=== PATIENT | male | born 1925 | race Caucasian/White ===

== ENCOUNTER 2016-08-28 22:07 | Inpatient (IN) | payer OTHER ==
[~2016-08-28] VITALS: Ht 180.3 cm; Wt 89.9 kg
--- NOTE | ~2016-08-28 | 2DMMODE ---
[facility] [address] [place] [address] 2 D/M-MODE ECHOCARDIOGRAM Name: RICHARD FRAUSTO SAM Room #: 214-P [facility] IN M.R.#: [id number] Admission: 08/28/16 Attend Phys: Alejandro Mcgregor, Discharge: Date of : [birth year] Date of Service: 08/30/16 1003 Report #: [id number] THIS REPORT FOR: //name// APPROVED REPORT Study performed: 08/30/2016 07:54:11 EXAM: Comprehensive 2D, Doppler, and color-flow Echocardiogram Patient Location: Echo lab Room #: 214 Status: routine Other Information Study Quality: Adequate Indications COPD Atrial Fibrillation Echo Enhancing Agent Indication: Endocardial border delineation Agent(s) / Amount(s) Used: Definity 2 cc 2D Dimensions LVEF(%): 56.50 (>50%) IVSd: 10.01 (7-11mm) LVOT Diam: 21.50 (18-24mm) LVDd: 49.78 mm PWd: 9.52 (7-11mm) Ascending Ao: 39.78 (22-36mm) LVDs: 35.01 (25-40mm) Aortic Root: 35.99 mm IVC: 17.00 mm Younger's LVEF: 56.50 % Volumes Left Atrial Volume (Systole) Single Plane 4CH: 38.98 mL Single Plane 2CH: 35.63 mL LA ESV Index: 19.00 mL/m2 Aortic Valve AoV Peak Abdirizak.: 1.18 m/s AO Peak Gr.: 5.58 mmHg LVOT Max P.44 mmHg LVOT Max V: 0.93 m/s TIFFANY Vmax: 2.85 cm2 Mitral Valve E/A Ratio: 0.[address] [facility] [place] [address] 2 D/M-MODE ECHOCARDIOGRAM Name: RICHARD FRAUSTO Room #: 214-P [facility] IN ..#: [id number] Admission: 08/28/16 Attend Phys: Alejandro Mcgregor, Discharge: Date of : [birth year] Date of Service: 08/30/16 1003 Report #: [id number] MV Decel. Time: 367.17 ms MV E Max Abdirizak.: 0.41 m/s MV A Abdirizak.: 0.87 m/s MV PHT: 106.48 ms IVRT: 189.16 ms Pulmonary Valve PV Peak Abdirizak.: 0.73 m/s PV Peak Gr.: 2.13 mmHg Pulmonary Vein P Vein S: 0.50 m/s P Vein A: 0.32 m/s P Vein D: 0.25 m/s P Vein A Dur.: 106.1 msec P Vein S/D Ratio: 2.00 Tricuspid Valve TR Peak Abdirizak.: 2.47 m/s RAP Estimate: 5.00 mmHg TR Peak Gr.: 24.38 mmHg PA Pressure: 29.00 mmHg Left Ventricle The left ventricle is normal size. There is normal LV segmental wall motion. There is normal left ventricular wall thickness. The left ventricular systolic function is normal. The left ventricular ejection fraction is within the normal range. LVEF is 55-60%. Grade I - abnormal relaxation pattern. Right Ventricle The right ventricle is normal size. The right ventricular systolic function is normal. Atria The left atrium size is normal. Right atrium is at the upper limits of normal. Aortic Valve Aortic valve is calcified. Trace aortic regurgitation. There is no aortic valvular stenosis. Mitral Valve The mitral valve is normal in structure. Mild mitral regurgitation. No evidence of mitral valve stenosis. Tricuspid Valve The tricuspid valve is normal in structure. There is trace tricuspid regurgitation. estimated pa presssure 25 mm Hg [facility] [address] [place] [address] 2 D/M-MODE ECHOCARDIOGRAM Name: RICHARD FRAUSTO Room #: 214-P [facility] IN [facility]#: [id number] Admission: 08/28/16 Attend Phys: Alejandro Mcgregor, Discharge: Date of : [birth year] Date of Service: 08/30/16 1003 Report #: [id number] Pulmonic Valve Pulmonic valve is not well visualized. Trace pulmonic regurgitation. Great Vessels Aortic root is mildly dilated. IVC is normal in size and collapses >50% with inspiration. Pericardium There is no pericardial effusion. <Conclusion> The left ventricular systolic function is normal. The left ventricular ejection fraction is within the normal range. Aortic valve is calcified. Mild mitral regurgitation. <ELECTRONICALLY SIGNED> By: Kelechi Elliott MD, [facility] 08/30/16 1003 1003 1003 Kelechi Elliott MD, FACC /INF
--- NOTE | ~2016-08-28 | HC ---
[facility] [place] [address] CONSULTATION Name: RICHARD FRAUSTO Room #: 214-P ADM IN M.R.#: [id number] Admission: 08/28/16 Attend Phys: Alejandro Mcgregor DO Discharge: Date of : [birth year] Report #: [id number] THIS REPORT FOR: //name// CC: Felipa Andersen DATE OF SERVICE: 08/29/2016 PRIMARY CARE PHYSICIAN: Dr. Felipa Guadarrama, [place], [place]. HISTORY OF PRESENT ILLNESS: The patient is an 89-year-old white male who I was asked to see in the hospital today after he was noted to be in atrial fibrillation. The patient has been followed by my partner, Dr. Iron Roper. He actually had a cardiac catheterization back in 2002 here at [facility]. This showed only 30% stenosis of the coronary artery. It was recommended he be treated medically. He has a history of colon cancer and anemia. He has required transfusion in the past. The patient was actually seen by my partner, Dr. Roper in 2011 after he had a near syncopal spell. He apparently did have a history of paroxysmal atrial fibrillation. At that time, he was noted to have a sinus bradycardia. He was on Cardizem CD at that time. He was last admitted here to [facility] in 2014 with exacerbation of chronic bronchitis. The patient is not very active because of his age. He notes for the past several days, he has felt lightheaded. He felt very weak and dizzy. Denied any vomiting, diarrhea or bleeding. He denies recent chest pain, shortness of breath, palpitations, edema. Because of the lightheadedness, he finally called paramedics yesterday. He was found to be in atrial fibrillation with rapid ventricular response rate. He was placed on IV diltiazem and admitted. I was asked to see him for further evaluation and treatment. He denies history of heart murmur. 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 He has had cataract extraction. He has a history of colon cancer. He has gone to the pain clinic in the past for chronic back pain. He has had epidurals in the past. As mentioned, he has a long history of anemia and colon cancer. His last colonoscopy in November 2015. He has had multiple colon polyps removed in the past and has hemorrhoids. His colonoscopy last November showed polyps. His previous upper endoscopy in 2006 that I could find showed only gastritis. CURRENT MEDICATIONS: Consist of albuterol inhaler, Pravachol, aspirin, Cardura CD 240 a day, iron, Symbicort. ALLERGIES: He has intolerance to multiple medications including TRAMADOL, CODEINE, LISINOPRIL, CRESTOR. [address] [address] CONSULTATION Name: RICHARD FRAUSTO Room #: 214-P [facility] IN M.R.#: [id number] Admission: 08/28/16 Attend Phys: Alejandro Mcgregor DO Discharge: Date of : [birth year] Report #: [id number] FAMILY HISTORY: Negative for heart disease. SOCIAL HISTORY: He is . He and his live in [place], [place]. Retired farm truck driver. Quit smoking years ago, rarely drinks alcohol. REVIEW OF SYSTEMS: He has had no history of stroke. He does have COPD. No history of liver disease, kidney disease. He had colon cancer in the past. No psychiatric illness. No chronic skin condition. PHYSICAL EXAMINATION: GENERAL: Revealed an elderly male, lying in bed. He appeared in no distress. VITAL SIGNS: He had a blood pressure of 120/70, pulse is 80. He is afebrile. HEENT: He was anicteric. Conjunctivae are pink. Mucous membranes are moist. NECK: Veins nondistended. CHEST: Clear to auscultation. CARDIAC: Irregular rhythm. ABDOMEN: Soft. EXTREMITIES: Had no edema. Dorsalis pedis pulse 1+ bilaterally. SKIN: Cool and dry. NEUROLOGIC: Nonfocal. RADIOLOGICAL DATA: His ECG on admission last night showed atrial fibrillation with rapid ventricular response rate, left axis, possible previous inferior infarction, age indeterminate. ECG 2014, atrial fibrillation was new. His workup, he had previous echocardiogram in 2012 that showed normal left ventricular function, left atrial enlargement, aortic sclerosis. Previous nuclear stress test in 2012 showed no evidence of ischemia. LABORATORY DATA: Sodium 141, potassium 3.8. His BUN was 14, creatinine 0.8, glucose 100, troponin 0.04, BNP 79. His white blood cell count 9.3, hemoglobin 14. TSH in 2012 was 1.36. IMPRESSION AND RECOMMENDATIONS: 1. Paroxysmal atrial fibrillation. The patient with recurrent episode. I would check thyroid function studies and echocardiogram. The patient has had no recent gastrointestinal bleeding. At this time, I would start Eliquis because of his high CHADS score. If he fails to convert, I would consider RUMA and cardioversion. 2. History of colon cancer. 3. Hypertension. The patient has been on a calcium darshana. [facility] [address] [place] [address] CONSULTATION Name: RICHARD FRAUSTO Room #: 214-P ADM IN M.R.#: [id number] Admission: 08/28/16 Attend Phys: Alejandro Mcgregor DO Discharge: Date of : [birth year] Report #: [id number] 4. Hyperlipidemia. The patient is on a statin drug. 5. History of chronic obstructive pulmonary disease. <ELECTRONICALLY SIGNED> By: Kelechi Elliott MD, FACC 08/29/16 0953 0739 0937 Kelechi Elliott MD, FAC /nt
--- NOTE | ~2016-08-28 | EKG ---
[address] [place] [address] ELECTROCARDIOGRAM REPORT Name: RUSLANANETTERICHARD ROSALES SAM Room #: 214-P ADM IN M.R.#: [id number] Admission: 08/28/16 Attend Phys: Nunu Negron Discharge: Date of : [birth year] Report #: [id number] THIS REPORT FOR: //name// [facility] Test Date: 2016-08-31 Test Time: 06:17:11 Pat Name: RICHARD FRAUSTO Department: Room: 214 P Gender: M Isotope Hydrologist: VANDA : 1925 Requested By: Kelechi Elliott Order Number: [id number] MD: Chris Black Measurements Intervals [place] Rate: 64 P: 66 VT: 164 QRS: -53 QRSD: 111 T: 44 QT: 463 QTc: 478 Interpretive Statements Sinus rhythm Left anterior fascicular block Abnormal R-wave progression, early transition Borderline prolonged QT interval Compared to ECG 08/30/2016 06:44:32 No significant change was found Electronically Signed On 08-31-2016 8:04:36 CDT by Chris Black [email or web address] <ELECTRONICALLY SIGNED> By: Chris Black MD, [facility] 08/31/16 0804 6 6 Chris Black MD, [facility] /EPI
--- NOTE | ~2016-08-28 | EKG ---
[address] [place] [address] ELECTROCARDIOGRAM REPORT Name: RICHARD FRAUSTO Room #: 214-P ADM IN M.R.#: [id number] Admission: 08/28/16 Attend Phys: Alejandro Mcgregor DO Discharge: Date of : [birth year] Report #: [id number] THIS REPORT FOR: //name// [facility] Test Date: 2016-08-28 Test Time: 22:09:21 Pat Name: RICHARD FRAUSTO Department: Room: 214 Gender: M Head Orthopedic Team Physician: ALISHA : 1925 Requested By: Adolfo Orr Order Number: [id number] MD: Chris Black Measurements Intervals [place] Rate: 139 P: [place]: QRS: -53 QRSD: 100 T: 49 QT: 319 QTc: 485 Interpretive Statements Atrial fibrillation with rapid V-rate Abnormal R-wave progression, late transition Inferior infarct, old Compared to ECG 03/15/2014 10:23:28 atrial fibrillation has replaced sinus rhythm Electronically Signed On 08-29-2016 8:52:41 CDT by Chris Black [email or web address] <ELECTRONICALLY SIGNED> By: Chris Black MD, [facility] 08/29/16 0852 2209 08 Chris Black MD, [facility] /EPI
--- NOTE | ~2016-08-28 | EKG ---
[address] [address] ELECTROCARDIOGRAM REPORT Name: RICHARD FRAUSTO Room #: 214-P ADM IN M.R.#: [id number] Admission: 08/28/16 Attend Phys: Alejandro Mcgregor DO Discharge: Date of : [birth year] Report #: [id number] THIS REPORT FOR: //name// [facility] Test Date: 2016-08-30 Test Time: 06:44:32 Pat Name: RICHARD FRAUSTO Department: Room: 214 P Gender: M Net Applications Developer: VANDA : 1925 Requested By: Kelechi Elliott Order Number: [id number] MD: Alexander Dimas Measurements Intervals [place] Rate: 65 P: 54 AR: 172 QRS: -54 QRSD: 112 T: 39 QT: 463 QTc: 482 Interpretive Statements Sinus rhythm Borderline IVCD with LAD Abnormal R-wave progression, early transition Inferior infarct, old Compared to ECG 08/28/2016 22:09:21 Atrial fibrillation no longer present Myocardial infarct finding still present Electronically Signed On 08-30-2016 13:19:39 CDT by Alexander Dimas [email or web address] <ELECTRONICALLY SIGNED> By: Alexander Dimas MD 08/30/16 1319 0644 0644 Alexander Dimas MD /EPI
[~2016-08-28 22:07] MED LIST: ACCUNEB0.63 MG/3; ACETAMINOPHEN325 M1 PO; ADULT LOW DOSE81 MG PO; AFLURIA 2045 MCG/0.4; ALBUTEROL2.5 MG/31 INH; AMOXIL 875 MG875 M1 PO; APAP500 PO; APAP650 PO; CALCIUM; CALCIUM 600 +1 EAC1 PO; CENTRUM SILVER1 EAC4 PO; CRESTOR10 MG PO; DILTIAZEM ER240 MG PO; DILTIAZEM ER300 MG PO; FERRO-TIME325 MG PO; FLOVENT; FLOVENT HFA 2220 MC1 INH; IRON; KEFLEX500 MG PO; MINIPRIN81 MG PO; MIRALAX17 GM PO; MULTIVITAMINS PO; NORCO 5-325 TA1 EACH PO; OMEGA-31000 MG PO; PNEUMOVAX25 MCG/0.5; PRAVACHOL20 MG PO; PREDNISONE 10 M10 MG PO; SIMVASTATIN20 MG PO; SIMVASTATIN40 MG PO; VENTOLIN17 GM INH; ZPAK PO
[2016-08-28 22:08] VITALS: BP 126/90
[2016-08-28 22:19] LABS: HEMATOCRIT 44.5 % (42.0-52.0); HEMOGLOBIN 14.9 gm/dL (14.0-18.0); MCH 33.3 pg (26.0-34.0); MCHC 33.5 g/dL (28.0-37.0); MCV 99.4 fL (80.0-100.0); PLATELET COUNT 453 thou/uL (150-400); RBC 4.48 mil/uL (4.50-6.00); RDW 14.3 % (10.5-14.5); WBC 9.6 thou/uL (4.0-11.0)
[2016-08-28] MEDS ORDERED: SYMBICORT160 MCG/4. (22:21)
[2016-08-28 22:40] LABS: ANION GAP 7 mmol/L (7-16); BUN 13 mg/dL (7-18); CALCIUM 9.2 mg/dL (8.5-10.1); CHLORIDE 108 mmol/L (98-107); CO2 27 mmol/L (21-32); CREATININE 0.9 mg/dL (0.7-1.3); GLUCOSE 129 mg/dL (74-106); MANUAL DIFF YES; SODIUM 142 mmol/L (136-145); TROPONIN-I < 0.04 ng/mL (<0.04-0.07)
[2016-08-28 23:14] LABS: ABSOLUTE NEUTROPHILS 5.1 thou/uL (1.4-8.2); ATYPICAL LYMPHS 2 %; TOTAL CELL COUNT 100
[2016-08-28 23:33] VITALS: BP 103/66
[2016-08-28 23:57] VITALS: BP 131/89
[2016-08-29] VITALS (9 sets, daily range): BP systolic 109–138; BP diastolic 59–89
[2016-08-29 05:29] LABS: HEMATOCRIT 41.3 % (42.0-52.0); MCH 33.4 pg (26.0-34.0); MCV 98.2 fL (80.0-100.0); RBC 4.2 mil/uL (4.50-6.00); WBC 9.3 thou/uL (4.0-11.0)
[2016-08-29 05:39] LABS: CALCIUM 8.6 mg/dL (8.5-10.1); CREATININE 0.8 mg/dL (0.7-1.3); POTASSIUM 3.8 mmol/L (3.5-5.1)
[2016-08-30 03:01] LABS: HEMATOCRIT 43.6 % (42.0-52.0); HEMOGLOBIN 14.4 gm/dL (14.0-18.0); MCH 32.9 pg (26.0-34.0); MCHC 33.2 g/dL (28.0-37.0); MCV 99.1 fL (80.0-100.0); RBC 4.4 mil/uL (4.50-6.00); WBC 8.9 thou/uL (4.0-11.0)
[2016-08-30 03:17] LABS: ALBUMIN 3.2 g/dL (3.4-5.0); CALCIUM 8.6 mg/dL (8.5-10.1); CREATININE 0.8 mg/dL (0.7-1.3); POTASSIUM 3.7 mmol/L (3.5-5.1); TOTAL BILIRUBIN 0.3 mg/dL (<0.1-1.0); TOTAL PROTEIN 6.6 g/dL (6.4-8.2)
[2016-08-30 03:49] VITALS: BP 89/56
[2016-08-30 07:55] VITALS: BP 126/83
[2016-08-30 12:10] VITALS: BP 101/73
[2016-08-30 15:59] VITALS: BP 114/65
[2016-08-30 19:52] VITALS: BP 126/66
[2016-08-31 03:58] VITALS: BP 109/56
[2016-08-31 07:20] VITALS: BP 132/66
[2016-08-31] MEDS ORDERED: ELIQUIS5 MG PO (10:40)
[2016-08-31] MEDS ORDERED: SORINE 80 MG TA80 M1 PO (10:40)
[2016-08-31 11:03] VITALS: BP 109/56
[2016-08-31 12:41] VITALS: BP 109/56
== END 2016-08-31 12:00 | disposition home or self-care (01) | DRG 309 ==
LOC: ER 22:07 → 2N 23:05 → EROBS 23:05 → 2N 23:40
PROVIDERS: Internal Medicine Cardiovascular Disease; Nurse Practitioner Family; Physician Assistant
DX: I48.91 Unspecified atrial fibrillation (principal); E44.1 Mild protein-calorie malnutrition; J44.9 Chronic obstructive pulmonary disease, unspecified; M81.0 Age-related osteoporosis without current pathological fracture; E78.00 Pure hypercholesterolemia, unspecified; I10 Essential (primary) hypertension; I48.0 Paroxysmal atrial fibrillation; G89.29 Other chronic pain; K57.90 Diverticulosis of intestine, part unspecified, without perforation or abscess without bleeding; M54.9 Dorsalgia, unspecified; E78.5 Hyperlipidemia, unspecified; I25.10 Atherosclerotic heart disease of native coronary artery without angina pectoris; Z88.1 Allergy status to other antibiotic agents; Z90.49 Acquired absence of other specified parts of digestive tract; Z85.038 Personal history of other malignant neoplasm of large intestine; Z87.11 Personal history of peptic ulcer disease; Z88.6 Allergy status to analgesic agent; Z88.8 Allergy status to other drugs, medicaments and biological substances; Z90.81 Acquired absence of spleen; Z98.49 Cataract extraction status, unspecified eye; Z68.27 Body mass index [BMI] 27.0-27.9, adult
CPT/HCPCS: 10081

== ENCOUNTER 2016-09-16 06:25 | Observation (INO) | payer OTHER ==
[~2016-09-16] VITALS: Ht 182.9 cm; Wt 91.2 kg
--- NOTE | ~2016-09-16 | EKG ---
[address] [address] ELECTROCARDIOGRAM REPORT Name: RICHARD FRAUSTO Room #: 450-P [facility] M.R.#: [id number] Admission: 09/16/16 Attend Phys: Nunu Negron Discharge: 09/17/16 Date of : [birth year] Report #: [id number] THIS REPORT FOR: //name// [facility] Test Date: 2016-09-17 Test Time: 08:05:51 Pat Name: RICHARD FRAUSTO Department: Room: 450 P Gender: M Rn Telemetry: ARLETTE : 1925 Requested By: Kelechi Elliott Order Number: [id number] MD: Alexander Dimas Measurements Intervals [place] Rate: 70 P: 47 CT: 174 QRS: -47 QRSD: 115 T: 62 QT: 397 QTc: 429 Interpretive Statements Sinus rhythm Left anterior fascicular block Baseline wander in lead(s) II,III,aVF Compared to ECG 08/31/2016 06:17:11 No significant changes Electronically Signed On 09-18-2016 22:14:26 CDT by Alexander Dimas [email or web address] <ELECTRONICALLY SIGNED> By: Alexander Dimas MD 09/18/16 2214 0805 Alexander Dimas MD /EPI
--- NOTE | ~2016-09-16 | EKG ---
[address] [place] [address] ELECTROCARDIOGRAM REPORT Name: RICHARD FRAUSTO Room #: 450-P [facility] M..#: [id number] Admission: 09/16/16 Attend Phys: Nunu Negron Discharge: 09/17/16 Date of : [birth year] Report #: [id number] THIS REPORT FOR: //name// [facility] Test Date: 2016-09-16 Test Time: 06:44:05 Pat Name: RICHARD FRAUSTO Department: Room: [facility] Gender: M Clinical Rn: [id number] : 1925 Requested By: Dheeraj Vences Order Number: [id number] MD: Alexander Dimas Measurements Intervals [place] Rate: 133 P: NE: QRS: -51 QRSD: 98 T: 46 QT: 317 QTc: 472 Interpretive Statements Atrial fibrillation Ventricular premature complex Left anterior fascicular block Abnormal R-wave progression, late transition Compared to ECG 08/31/2016 06:17:11 Ventricular premature complex(es) now present Sinus rhythm no longer present Electronically Signed On 09-18-2016 22:04:06 CDT by Alexander Dimas [email or web address] <ELECTRONICALLY SIGNED> By: Alexander Dimas MD 09/18/16 2204 0644 0644 Alexander Dimas MD /EPI
[~2016-09-16 06:25] MED LIST changes: +ELIQUIS5 MG PO; +SORINE 80 MG TA80 M1 PO; +SYMBICORT160 MCG/4.
[2016-09-16 06:27] VITALS: BP 111/81
[2016-09-16 06:53] LABS: HEMATOCRIT 40.6 % (42.0-52.0); HEMOGLOBIN 13.4 gm/dL (14.0-18.0); MCH 32.9 pg (26.0-34.0); MCHC 32.9 g/dL (28.0-37.0); PLATELET COUNT 356 thou/uL (150-400); RBC 4.06 mil/uL (4.50-6.00); RDW 13.9 % (10.5-14.5); WBC 7.9 thou/uL (4.0-11.0)
[2016-09-16 06:59] LABS: MANUAL DIFF YES
[2016-09-16 07:01] LABS: ANION GAP 8 mmol/L (7-16); BUN 14 mg/dL (7-18); CALCIUM 8.9 mg/dL (8.5-10.1); CHLORIDE 108 mmol/L (98-107); CO2 27 mmol/L (21-32); CREATININE 0.8 mg/dL (0.7-1.3); GLUCOSE 113 mg/dL (74-106); POTASSIUM 4.1 mmol/L (3.5-5.1); SODIUM 143 mmol/L (136-145)
[2016-09-16 07:09] LABS: ALBUMIN 3.3 g/dL (3.4-5.0); ALKALINE PHOSPHATASE 60 U/L (46-116); MAGNESIUM 2.2 mg/dL (1.8-2.4); SGOT 16 U/L (15-37); SGPT 16 U/L (30-65); TOTAL BILIRUBIN 0.3 mg/dL (<0.1-1.0); TOTAL PROTEIN 6.8 g/dL (6.4-8.2); TROPONIN-I < 0.04 ng/mL (<0.04-0.07)
[2016-09-16 08:23] LABS: ABSOLUTE NEUTROPHILS 4.2 thou/uL (1.4-8.2); ANISOCYTOSIS SLIGHT; POIKILOCYTOSIS SLIGHT; TOTAL CELL COUNT 100
[2016-09-16 08:24] LABS: LARGE PLATELETS OCCASIONAL
[2016-09-16 10:18] VITALS: BP 102/58
[2016-09-16] MEDS ORDERED: GABAPENTIN 100100 MG PO (10:30)
[2016-09-16 10:32] VITALS: BP 126/88
[2016-09-16] MEDS ORDERED: NORCO 5-325 TA1 EACH PO (10:34)
[2016-09-16 19:33] VITALS: BP 116/76
[2016-09-17 00:13] VITALS: BP 99/54
[2016-09-17 04:05] VITALS: BP 129/67
[2016-09-17 06:06] LABS: ANION GAP 6 mmol/L (7-16); BUN 15 mg/dL (7-18); CALCIUM 8.7 mg/dL (8.5-10.1); CHLORIDE 106 mmol/L (98-107); CO2 28 mmol/L (21-32); CREATININE 0.8 mg/dL (0.7-1.3); GLUCOSE 85 mg/dL (74-106); POTASSIUM 4.3 mmol/L (3.5-5.1); SODIUM 140 mmol/L (136-145); TROPONIN-I < 0.04 ng/mL (<0.04-0.07)
[2016-09-17 06:53] VITALS: BP 137/74
[2016-09-17] MEDS ORDERED: SOTALOL 120 MG120 MG PO (12:00)
[2016-09-17 12:05] VITALS: BP 137/74
== END 2016-09-17 12:59 | disposition home or self-care (01) ==
LOC: ER 06:25 → EROBS 08:58 → 4W 10:21
PROVIDERS: Emergency Medicine; Hospitalist
DX: I48.0 Paroxysmal atrial fibrillation (principal); K57.90 Diverticulosis of intestine, part unspecified, without perforation or abscess without bleeding; I10 Essential (primary) hypertension; E86.0 Dehydration; K25.4 Chronic or unspecified gastric ulcer with hemorrhage; J44.9 Chronic obstructive pulmonary disease, unspecified; D64.9 Anemia, unspecified; M81.0 Age-related osteoporosis without current pathological fracture; M19.90 Unspecified osteoarthritis, unspecified site; Z87.891 Personal history of nicotine dependence

== ENCOUNTER 2016-09-23 18:09 | Observation (INO) | payer OTHER ==
[~2016-09-23] VITALS: Ht 182.9 cm; Wt 89.6 kg
--- NOTE | ~2016-09-23 | HC ---
[facility] [place] [address] CONSULTATION Name: RICHARD FRAUSTO [id number] Admission: 09/23/16 Attend Phys: Brandon Connor MD Discharge: Date of : [birth year] Report #: [id number] THIS REPORT FOR: //name// CC: Felipa Connor DATE OF SERVICE: 09/23/2016 HISTORY OF PRESENT ILLNESS: The patient is an 89-year-old white male who I was asked to see in the hospital today after he complained of chest pain. The patient has an extensive past medical history. He actually had a heart catheterization in 2002 here at [facility] that showed no significant coronary artery disease. He has a history of paroxysmal atrial fibrillation. He was actually admitted to [facility] on August 28 complaining of feeling lightheaded, weak, and dizzy. He was found to be in atrial fibrillation. I saw him in consultation. He was placed on IV diltiazem and converted to sinus rhythm. He was placed on sotalol and Eliquis. He was discharged, but complained of feeling lightheaded, fatigued. He was noted to be bradycardic. His sotalol was decreased to 40 mg twice day. However, he is readmitted a week ago with recurrent atrial fibrillation. The dose of sotalol was increased back to 120 twice a day. He notes that since last week, he has felt lightheaded and weak, short of breath. He has had some nausea. Starting yesterday, he felt a tightness in his chest. There was no radiation of the pain. No associated shortness breath. Because of the chest tightness, he finally called ambulance. He was brought to [facility] and admitted. The tightness is not related to food. He had no belching or bleeding. He had no recent bleeding, fever or cough. He denies exertional dyspnea, palpitations. 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 He has had cataract extraction. He has a history of colon cancer, previous resection. He has gone to the pain clinic in the past for chronic back pain. He has had epidurals. He had a previous history of anemia on warfarin, requiring transfusion. He was taken off warfarin in the past. He has a history of bradycardia while on diltiazem. He has had colon polyps removed. He has hemorrhoids, gastritis by EGD. He has a history of hypertension, hyperlipidemia. No history of diabetes. CURRENT MEDICATIONS: Consist of albuterol inhaler, Pravachol, iron, Symbicort, Eliquis, sotalol. ALLERGIES: He has intolerance to multiple medications including TRAMADOL, CODEINE, LISINOPRIL, CRESTOR. [address] [address] CONSULTATION Name: RICHARD FRAUSTO Room #: 206-P [facility] M.RRosales#: [id number] Admission: 09/23/16 Attend Phys: Brandon Connor MD Discharge: Date of : [birth year] Report #: [id number] FAMILY HISTORY: Negative for heart disease. SOCIAL HISTORY: He is . His actually has chronic medical conditions and cannot leave her home. They live in [place], [place]. He is a retired reach lift truck driver. Quit smoking years ago, rarely drinks alcohol. REVIEW OF SYSTEMS: He has had no history of stroke. He does have COPD. No history of liver disease, kidney disease. He has had colon cancer. No psychiatric illness. No chronic skin condition. PHYSICAL EXAMINATION: GENERAL: Elderly male lying in bed, appeared in no acute distress. VITAL SIGNS: He had a blood pressure 130/60, pulse was 54. He was afebrile. HEENT: He was anicteric. Conjunctivae pink. Mucous membranes moist. NECK: Veins do not appear distended. CHEST: Revealed coarse breath sounds. CARDIAC: Regular bradycardia. ABDOMEN: Soft. EXTREMITIES: Had no edema. Posterior tibial pulse 2+ bilaterally. SKIN: Warm and dry. NEUROLOGIC: Nonfocal. RADIOLOGICAL DATA: Workup in the emergency room last night, unfortunately I cannot find an ECG in the patient's chart at this time. His echocardiogram last month showed normal left ventricular function, aortic sclerosis, and mild mitral regurgitation. Nuclear stress test in 2011 showed no evidence of ischemia. His workup in the emergency room last night, he had a chest x-ray that showed normal heart size, clear lung nj. KUB this morning showed no obstruction. No evidence of ileus. CT scan of the head done in 2014 showed no acute abnormality. Carotid Doppler study in 2011 showed no significant stenosis, minimal plaque. LABORATORY DATA: Sodium 141, potassium 4.0, BUN 13, creatinine was 0.7. His liver function studies were normal. Troponins all 0.04. His white blood cell count is 9.3, hemoglobin 13.3. He had a TSH in August 1.83, T4 1.22. IMPRESSION AND RECOMMENDATIONS: 1. Chest pain. No evidence of acute myocardial infarction. In light of his advanced age, I would not recommend stress testing or cardiac catheterization. The patient did rule out for myocardial infarction. 2. History of atrial fibrillation. No clinical recurrences. 3. Sinus bradycardia. He is symptomatic, would recommend a pacemaker. 4. History of colon cancer. 5. Hypertension. The patient is on a beta darshana. [facility] [address] [place] [address] CONSULTATION Name: RICHARD FRAUSTO Room #: 206-P [facility] Caleb Haywood#: [id number] Admission: 09/23/16 Attend Phys: Brandon Connor MD Discharge: Date of : [birth year] Report #: [id number] 6. Hyperlipidemia. The patient is on a statin drug. 7. History of chronic obstructive pulmonary disease. <ELECTRONICALLY SIGNED> By: Kelechi Elliott MD, FACC 09/25/161955 1537 19 Kelechi Elliott MD, FACC /nt
--- NOTE | ~2016-09-23 | EKG ---
[address] [place] [address] ELECTROCARDIOGRAM REPORT Name: VERNARICHARD ROSALES SAM Room #: 206-P [facility] M.R.#: [id number] Admission: 09/23/16 Attend Phys: Mack Mcdermott MD Discharge: Date of : [birth year] Report #: [id number] THIS REPORT FOR: //name// [facility] Test Date: 2016-09-25 Test Time: 07:38:04 Pat Name: RICHARD FRAUSTO Department: Room: 206 P Gender: M Chief Customer Officer: VANDA : 1925 Requested By: Kelechi Elliott Order Number: [id number] MD: Chris Black Measurements Intervals [place] Rate: 58 P: -16 OR: 162 QRS: -42 QRSD: 114 T: 11 QT: 468 QTc: 460 Interpretive Statements Sinus rhythm Left anterior hemiblock Early R-wave progression Compared to ECG 09/17/2016 08:05:51 No significant change was found Electronically Signed On 09-26-2016 9:23:05 CDT by Chris Black [email or web address] <ELECTRONICALLY SIGNED> By: Chris Black MD, [facility] 09/26/16922 7 7 Chris Black MD, [facility] /EPI
--- NOTE | ~2016-09-23 | EKG ---
[address] [address] ELECTROCARDIOGRAM REPORT Name: RICHARD FRAUSTO Room #: 206-P [facility] M..#: [id number] Admission: 09/23/16 Attend Phys: Mack Mcdermott MD Discharge: Date of : [birth year] Report #: [id number] THIS REPORT FOR: //name// [facility] Test Date: 2016-09-26 Test Time: 06:29:32 Pat Name: RICHARD FRAUSTO Department: Room: 206 P Gender: M Staff Services Manager: wallace : 1925 Requested By: Kelechi Elliott Order Number: [id number] MD: Measurements Intervals [place] Rate: 66 P: 41 [place]: 169 QRS: -46 QRSD: 109 T: 26 QT: 436 QTc: 457 Interpretive Statements Sinus rhythm Left anterior fascicular block Abnormal R-wave progression, late transition Compared to ECG 09/23/2016 18:11:08 Left anterior fascicular block now present [email or web address] By: 0629 0629 Epiphany EpiphanyMD /EPI
--- NOTE | ~2016-09-23 | EKG ---
[place] [address] ELECTROCARDIOGRAM REPORT Name: RICHARD FRAUSTO Room #: 206-P [facility]..#: [id number] Admission: 09/23/16 Attend Phys: Brandon Connor MD Discharge: Date of : [birth year] Report #: [id number] THIS REPORT FOR: //name// [facility] Test Date: 2016-09-23 Test Time: 18:11:08 Pat Name: RICHARD FRAUSTO Department: Room: 206 Gender: M Pattern Marker: MICHAEL Moreau : 1925 Requested By: Judah Carrillo Order Number: [id number] MD: Chris Black Measurements Intervals [place] Rate: 59 P: 17 [place]: 169 QRS: -39 QRSD: 114 T: 22 QT: 460 QTc: 456 Interpretive Statements Sinus rhythm Probable left atrial enlargement Borderline IVCD with LAD Compared to ECG 09/17/2016 08:05:51 No significant change was found Electronically Signed On 09-25-2016 10:49:14 CDT by Chris Black [email or web address] <ELECTRONICALLY SIGNED> By: Chris Black MD, [facility] 09/25/16 1049 181 10 Chris Black MD, [facility] /EPI
[~2016-09-23 18:09] MED LIST changes: +GABAPENTIN 100100 MG PO; +SOTALOL 120 MG120 MG PO
[2016-09-23 18:10] VITALS: BP 162/80
[2016-09-23 18:30] LABS: HEMATOCRIT 39.7 % (42.0-52.0); HEMOGLOBIN 13.1 gm/dL (14.0-18.0); MANUAL DIFF YES; MCH 32.8 pg (26.0-34.0); MCV 99.1 fL (80.0-100.0); PLATELET COUNT 330 thou/uL (150-400); RBC 4.01 mil/uL (4.50-6.00); RDW 13.7 % (10.5-14.5); WBC 8.2 thou/uL (4.0-11.0)
[2016-09-23 18:41] LABS: ANION GAP 8 mmol/L (7-16); BUN 16 mg/dL (7-18); CALCIUM 8.2 mg/dL (8.5-10.1); CHLORIDE 107 mmol/L (98-107); CO2 26 mmol/L (21-32); CREATININE 0.6 mg/dL (0.7-1.3); GLUCOSE 94 mg/dL (74-106); POTASSIUM 4.1 mmol/L (3.5-5.1); SODIUM 141 mmol/L (136-145)
[2016-09-23 18:51] LABS: APTT 28.1 Seconds (24.5-32.8); PROTIME 9.4 Seconds (9.3-11.4)
[2016-09-23 18:54] LABS: ABSOLUTE NEUTROPHILS 3.3 thou/uL (1.4-8.2); ATYPICAL LYMPHS 6 %; LARGE PLATELETS FEW; TOTAL CELL COUNT 100
[2016-09-23 19:04] LABS: ALBUMIN 3.1 g/dL (3.4-5.0); ALKALINE PHOSPHATASE 56 U/L (46-116); NT-PRO BRAIN NAT PEPTIDE 200 pg/mL (<300); SGOT 17 U/L (15-37); SGPT 21 U/L (30-65); TOTAL BILIRUBIN 0.3 mg/dL (<0.1-1.0); TOTAL PROTEIN 6.3 g/dL (6.4-8.2); TROPONIN-I < 0.04 ng/mL (<0.04-0.07)
[2016-09-23 19:25] LABS: CK-MB MASS < 0.5 ng/mL (<0.5-3.6)
[2016-09-23 20:01] VITALS: BP 135/72
[2016-09-23 20:05] VITALS: BP 130/72
[2016-09-23 20:24] VITALS: BP 171/91
[2016-09-23 21:29] VITALS: BP 171/91
[2016-09-24] VITALS (7 sets, daily range): BP systolic 119–1198; BP diastolic 58–87
[2016-09-24 06:50] LABS: HEMATOCRIT 40.7 % (42.0-52.0); HEMOGLOBIN 13.3 gm/dL (14.0-18.0); MCH 32.6 pg (26.0-34.0); MCHC 32.7 g/dL (28.0-37.0); MCV 99.5 fL (80.0-100.0); PLATELET COUNT 324 thou/uL (150-400); RBC 4.09 mil/uL (4.50-6.00); RDW 13.8 % (10.5-14.5); WBC 9.3 thou/uL (4.0-11.0)
[2016-09-24 06:53] LABS: MANUAL DIFF YES
[2016-09-24 07:04] LABS: CALCIUM 8.8 mg/dL (8.5-10.1); CREATININE 0.7 mg/dL (0.7-1.3); TOTAL BILIRUBIN 0.4 mg/dL (<0.1-1.0); TOTAL PROTEIN 6.4 g/dL (6.4-8.2)
[2016-09-24 08:41] LABS: ABSOLUTE NEUTROPHILS 4.6 thou/uL (1.4-8.2); ANISOCYTOSIS SLIGHT; ATYPICAL LYMPHS 5 %; TOTAL CELL COUNT 100
[2016-09-24 08:43] LABS: LARGE PLATELETS OCCASIONAL
[2016-09-25 03:35] VITALS: BP 153/78
[2016-09-25 04:13] LABS: HEMATOCRIT 40.7 % (42.0-52.0); HEMOGLOBIN 13.3 gm/dL (14.0-18.0); MCH 32.6 pg (26.0-34.0); MCHC 32.7 g/dL (28.0-37.0); MCV 99.7 fL (80.0-100.0); PLATELET COUNT 301 thou/uL (150-400); RBC 4.08 mil/uL (4.50-6.00); RDW 13.6 % (10.5-14.5); WBC 9.5 thou/uL (4.0-11.0)
[2016-09-25 04:30] LABS: MANUAL DIFF YES
[2016-09-25 04:46] LABS: ALBUMIN 2.9 g/dL (3.4-5.0); CALCIUM 8.5 mg/dL (8.5-10.1); CREATININE 0.6 mg/dL (0.7-1.3); POTASSIUM 3.8 mmol/L (3.5-5.1); TOTAL BILIRUBIN 0.3 mg/dL (<0.1-1.0); TOTAL PROTEIN 6.2 g/dL (6.4-8.2)
[2016-09-25 05:28] LABS: ABSOLUTE NEUTROPHILS 4.8 thou/uL (1.4-8.2); LARGE PLATELETS FEW; TOTAL CELL COUNT 100
[2016-09-25 07:35] VITALS: BP 147/68
[2016-09-25 12:45] VITALS: BP 141/91
[2016-09-25 17:10] VITALS: BP 147/79
[2016-09-25 19:38] VITALS: BP 151/80
[2016-09-26 03:17] VITALS: BP 123/75
[2016-09-26 03:28] LABS: HEMATOCRIT 40.4 % (42.0-52.0); HEMOGLOBIN 13.7 gm/dL (14.0-18.0); MCH 33.1 pg (26.0-34.0); MCHC 33.8 g/dL (28.0-37.0); MCV 97.8 fL (80.0-100.0); PLATELET COUNT 323 thou/uL (150-400); RBC 4.13 mil/uL (4.50-6.00); RDW 13.8 % (10.5-14.5); WBC 9.7 thou/uL (4.0-11.0)
[2016-09-26 03:35] LABS: MANUAL DIFF YES
[2016-09-26 03:38] LABS: CALCIUM 8.7 mg/dL (8.5-10.1); CREATININE 0.6 mg/dL (0.7-1.3); POTASSIUM 3.8 mmol/L (3.5-5.1); TOTAL BILIRUBIN 0.5 mg/dL (<0.1-1.0); TOTAL PROTEIN 6.5 g/dL (6.4-8.2)
[2016-09-26 07:55] VITALS: BP 145/182
[2016-09-26 08:43] LABS: ABSOLUTE NEUTROPHILS 4.8 thou/uL (1.4-8.2); PLATELET ESTIMATE NORMAL; TOTAL CELL COUNT 100
[2016-09-26 10:37] VITALS: BP 145/182
[2016-09-26 10:39] VITALS: BP 145/182
[2016-09-26] MEDS ORDERED: PROPAFENONE 15150 MG PO (10:46)
== END 2016-09-26 12:20 | disposition home or self-care (01) ==
LOC: ER 18:09 → 2N 19:18 → EROBS 19:18 → 2N 20:10
PROVIDERS: Emergency Medicine; Nurse Practitioner
DX: R07.89 Other chest pain (principal); I48.91 Unspecified atrial fibrillation; I10 Essential (primary) hypertension; J44.9 Chronic obstructive pulmonary disease, unspecified; E78.5 Hyperlipidemia, unspecified; K57.90 Diverticulosis of intestine, part unspecified, without perforation or abscess without bleeding; M81.0 Age-related osteoporosis without current pathological fracture; M19.90 Unspecified osteoarthritis, unspecified site; Z87.891 Personal history of nicotine dependence